=== PATIENT | male | born 1975 | race Caucasian/White ===

== ENCOUNTER 2019-08-28 11:54 | Outpatient (CLI) | payer BC, SELFPAY ==
--- NOTE | ~2019-08-28 | US_ITS ---
US venous doppler [facility] DATE: 08/28/2019 12:35 INDICATION: Left lower extremity edema TECHNIQUE: Real time and color flow imaging, doppler analysis COMPARISON: None FINDINGS: The greater saphenous vein is patent. There is spontaneous and phasic flow and normal augm entation and color flow signal of the deep veins of the left lower extremity. IMPRESSION: Negative; no evidence of deep venous thrombosis Reviewed, dictated and finalized at [facility]. Reviewed, dictated and finalized at [facility].
== END 2019-08-28 11:55 | disposition home or self-care (01) ==
PROVIDERS: PCP Family Medicine; Visit Provider Family Medicine
DX: M79.89 Other specified soft tissue disorders (principal)
CPT/HCPCS: 93971

== ENCOUNTER → 2020-07-31 01:44 | Outpatient (CLI) | payer BC, SELFPAY ==
[2020-08-01 14:52] LABS: SARS-CoV-2 RNA PCR Negative
== END ==
PROVIDERS: Visit Provider Internal Medicine Gastroenterology
DX: Z01.812 Encounter for preprocedural laboratory examination (principal); Z20.822 Contact with and (suspected) exposure to COVID-19
CPT/HCPCS: C9803; U0003; U0005

== ENCOUNTER 2020-08-03 02:17 | Day surgery (SDC) | payer BC, SELFPAY ==
[2020-07-27 12:54] VITALS: BMI 33.5
--- NOTE | 2020-08-03 08:59 | WPDANESEPPF ---
Anes - Initial Pre Proc Eval Procedure: Operation Date: 08/03/20 10:15 Proposed Procedures p Colonoscopy - Sean Newman MD Date/Time: 08/03/20 08:59 Surgeon: Sean Newman MD Pre Op Diagnosis: Rectal Bleeding Patient Data Age: 45 Gender: M Height: 1.8 m Weight: 109 kg Allergies Allergy/AdvReac Type Severity Reaction Status Date / Time No Known Allergies Allergy Verified 07/27/20 12:50 Home Medications Medication Instructions Recorded Confirmed Type atorvastatin 40 mg PO DAILY 07/27/20 07/27/20 History citalopram 40 mg PO DAILY 07/27/20 07/27/20 History ertugliflozin [Steglatro] 15 mg PO DAILY 07/27/20 07/27/20 History losartan 25 mg PO DAILY 07/27/20 07/27/20 History metformin 1,000 mg PO BID 07/27/20 07/27/20 History Patient hx anesthesia problems: none Family hx anesthesia problems: none PMFSH Past Medical History Medical History (Updated 08/02/20 @ 10:15 by James Bautista DO) Diabetes type 2, controlled Family History Family History (Updated 09/15/14 @ 12:54 by DOCTOR UNKNOWN) Other Diabetes mellitus Family history of arthritis Family history of malignant neoplasm Hypertension Social History Social History Smoking status: Never smoker Alcohol intake: never Substance use type: does not use Living arrangements: alone Gender identity (if verbalized by the patient): Male Anes - Eval Final PreProcedure Day of Procedure 08/03/20 08:59 Patient weight: obese Heart: regular rate and rhythm Lungs: clear to auscultation and normal air movement Airway: Mallampati scale class II Neurological: alert and oriented Last oral intake: >/= 8 hours ASA classification: III Emergent: no Anesthetic plan: proceed Anesthesia type and monitoring: general GIVS and standard monitoring Informed Consent: The patient's anesthetic plan and its attendant risks and benefits were discussed with the patient/family/POA. Questions were solicited and answers provided to the satisfaction of the patient/family/POA.
[2020-08-03 09:05] VITALS: BP 125/78; PULSE 87; RESP 16; TEMP 36.1; O2SAT 98; BMI 32.7
[2020-08-03] MEDS: LACTATED RINGERS 1,000 ML 150 ML IV CONT (09:09)
[2020-08-03 09:12] LABS: Glucose Point of Care 105 (65-105)
--- NOTE | 2020-08-03 09:31 | PM.HPGS ---
History of Present Illness History of Present Illness Consent: Risks, benefits, and alternatives have been discussed and questions answered. Patient agrees to proceed with procedure. Chief complaint: Rectal Bleeding Narrative: David Locke is a 45 year old male with intermittent rectal bleeding, never had colonoscopy Review of Systems Constitutional: Constitutional: Denies headache(s) and Denies weakness Eyes: Eyes: Denies blurry vision ENT: Reports Normal hearing present, Denies headache(s) and Denies neck pain Cardiovascular: Cardiovascular: Denies chest pain and Denies dyspnea Respiratory: Respiratory: Denies dyspnea Gastrointestinal: Gastrointestinal: Reports no additional gastrointestinal complaints Genitourinary: Genitourinary: Denies dysuria Musculoskeletal: Musculoskeletal: Denies neck pain Integumentary/Breasts: Skin/Breast: Denies dry skin Neurologic: Reports Normal hearing present, Denies headache(s) and Denies weakness Psychiatric: Psychiatric: Denies anxiety Endocrine: Endocrine: Denies change in body appearance Hematologic/Lymphatic: Hematologic/Lymphatic: Denies easy bleeding Allergic/Immunologic: Allergic/Immunologic: Denies urticaria PMFSH Past Medical History Medical History (Updated 08/03/20 @ 09:32 by Sean Newman MD) Diabetes type 2, controlled Rectal bleeding Family History Family History (Updated 09/15/14 @ 12:54 by DOCTOR UNKNOWN) Other Diabetes mellitus Family history of arthritis Family history of malignant neoplasm Hypertension Social History Social History Smoking status: Never smoker Alcohol intake: never Substance use type: does not use Living arrangements: alone Gender identity (if verbalized by the patient): Male Meds Home Medications and Allergies Home Medications Medication Instructions Recorded Confirmed Type atorvastatin 40 mg PO DAILY 07/27/20 08/03/20 History citalopram 40 mg PO DAILY 07/27/20 08/03/20 History ertugliflozin [Steglatro] 15 mg PO DAILY 07/27/20 08/03/20 History losartan 25 mg PO DAILY 07/27/20 08/03/20 History metformin 1,000 mg PO BID 07/27/20 08/03/20 History Allergies Allergy/AdvReac Type Severity Reaction Status Date / Time No Known Allergies Allergy Verified 08/03/20 09:03 Vital Signs Vital Signs - 24 hr 08/03/20 09:05 Temperature 97 F L Pulse Rate 87 Respiratory Rate 16 Blood Pressure 125/78 Pulse Oximetry 98 Exam Const: General: comfortable and no acute distress HENMT: General nose exam: Normal nares present Eyes: General: appearance normal, both eyes and all related structures Neck: Neck: no JVD Resp: Auscultation: clear to auscultation bilaterally Cardio: Rate: regular rate Rhythm: regular rhythm GI: Inspection: non-distended GI Palp: Yes Soft to palpation Skin: General skin exam: normal color Neuro: General: gait normal Speech: normal speech Extrem: General: normal to inspection Psych: Mental Status: mental status grossly normal Assessment and Plan Assessment and plan (1) Rectal bleeding: Code(s): K62.5 - Hemorrhage of anus and rectum Status: Acute Assessment and Plan: colonoscopy
[2020-08-03 09:48] VITALS: BP 110/82; PULSE 88; RESP 23; O2SAT 100
[2020-08-03 09:58] VITALS: BP 119/72; PULSE 81; RESP 21; O2SAT 100
[2020-08-03 10:08] VITALS: BP 121/79; PULSE 76; RESP 24; O2SAT 98
== END 2020-08-03 10:16 | disposition home or self-care (01) ==
PROVIDERS: PCP Family Medicine; Visit Provider Internal Medicine Gastroenterology
PROC: 0DJD8ZZ Inspection of Lower Intestinal Tract, Via Natural or Artificial Opening Endoscopic (ICD-10-PCS; CPT 45378; principal; 2020-08-03 10:15)
DX: K92.1 Melena (principal); K57.30 Diverticulosis of large intestine without perforation or abscess without bleeding; K64.8 Other hemorrhoids; E11.9 Type 2 diabetes mellitus without complications; Z79.84 Long term (current) use of oral hypoglycemic drugs
CPT/HCPCS: 45378; 82948; C9803; J2704; J7120; U0003; U0005

== ENCOUNTER → 2020-11-25 15:44 | Outpatient (CLI) | payer BC, SELFPAY ==
--- NOTE | ~2020-11-25 | US_ITS ---
EXAMINATION: US scrotum doppler DATE: 11/25/2020 16:30 INDICATION: Right testicular pain. TECHNIQUE: Grayscale and Doppler ultrasound images of the testes were obtained. COMPARISON: None. FINDINGS: The right testis measures 3.8 x 1.9 x 2.7 cm. The left testis measures 3.8 x 1.8 x 2.6 cm. There are areas of hypoechogenicity in the right testis. There is normal vascular flow to both testes . The right epididymis is enlarged and heterogeneous with normal vascularity. The left epididymis is normal with normal vascular flow. There is no varicocele or hydrocele. There is encapsulated fat in t he right groin in the patient's area of concern. IMPRESSION: 1. Enlarged and heterogeneous right epididymis and inhomogeneous right testis, likely epididymoorchi tis. 2. Encapsulated fat in the right groin that may be a hernia. Reviewed, dictated and finalized at [facility]. IMPRESSION: 1. Enlarged and heterogeneous right epididymis and inhomogeneous right testis, likely epididymoorchitis. 2. Encapsulated fat in the right groin that may be a hernia.
== END ==
PROVIDERS: PCP Family Medicine; Visit Provider Physician Assistant
DX: N50.819 Testicular pain, unspecified (principal); R93.89 Abnormal findings on diagnostic imaging of other specified body structures
CPT/HCPCS: 76870; 93976